=== PATIENT | male | born 1990 | race Caucasian/White ===

== ENCOUNTER 2021-03-24 08:03 | Outpatient (CLI) | payer OTHER ==
[~2021-03-24] VITALS: Ht 177.8 cm; Wt 72.7 kg
[2021-03-24] MEDS ORDERED: OMEPRAZOLE20 M1 (09:03)
[2021-03-24] MEDS ORDERED: LEVSIN/ANASP0.125 MG (09:04)
[2021-03-24 09:10] VITALS: Ht 177.8 cm; Wt 72.7 kg
--- NOTE | 2021-03-24 16:05 | NUR ---
[address] 1500 IV REMOVED AND INSTRUCTIONS GIVEN TO PT 1545 D/C BACK TO [facility]
--- NOTE | 2021-03-25 13:22 | HP ---
PATIENT: RAMESH SCHULTZ MEDICAL RECORD: [id number] ACCOUNT: [id number] LOCATION:D.CT : 89 ADMISSION DATE: 03/24/21 PCP: No PCP HISTORY AND PHYSICAL EXAMINATION HISTORY OF PRESENT ILLNESS: The patient is here for EGD and colonoscopy. He underwent a CAT scan and this over a year old. It revealed minimal ascites in the pelvis as well as some thick walled small bowel. This is suspicious for ileitis and could represent inflammatory bowel disease or an infectious problem. He has noted no hematochezia. No melena. PAST MEDICAL AND SURGICAL HISTORY: Gastroesophageal reflux. MEDICATIONS: At the long-term; omeprazole, Levsin. ALLERGIES: No known drug allergies. SOCIAL HISTORY: Nonsmoker. PHYSICAL EXAMINATION: GENERAL: The patient does not appear acutely ill. He does not appear chronically ill. VITAL SIGNS: Reviewed. EARS: External ears appear normal. EYES: Extraocular movements are intact. NECK: Trachea is midline. CHEST: No intercostal retractions. PULMONARY: Nonlabored. No stridor. IMPRESSION: 1. Abdominal pain, left lower quadrant as well as right side of the abdomen. 2. Abnormal appearing CT scan with thickened small bowel. PLAN: EGD and colonoscopy. TRANSINT:[id number] Voice Confirmation ID: [id number] DOCUMENT ID: [id number] 03/24/2021 Edited for cc. cc: Jud Shrestha APN, [facility] JYOTSNA RODRÍGUEZ MD at 1322 CC: [id number] DICTATION DATE: 03/24/21 1209 SC[employer]HOUSE ATTENDANT: 03/24/21 1225 DEP CLI 03/24/21 [place] [id number]
--- NOTE | 2021-03-25 13:22 | OP ---
PATIENT NAME: RAMESH SCHULTZ MEDICAL RECORD: [id number] :89 LOCATION:D.CT ADMISSION DATE: SURGEON: JYOTSNA RODRÍGUEZ MD DATE OF OPERATION: 03/24/2021 PREOPERATIVE DIAGNOSES: 1. Left lower quadrant abdominal pain. 2. Right-sided abdominal pain. 3. History of ascites on CT scan. 4. History of thickened bowel on CT scan somewhat worrisome for inflammatory bowel disease. POSTOPERATIVE DIAGNOSES: 1. Left lower quadrant abdominal pain. 2. Right-sided abdominal pain. 3. History of ascites on CT scan. 4. History of thickened bowel on CT scan somewhat worrisome for inflammatory bowel disease. 5. Normal upper endoscopy. 6. Normal colonoscopy without a colitis or proctitis. 7. Normal appearing ileum. 8. One colonic polyp, 7 mm, sessile. PROCEDURES: 1. Esophagogastroduodenoscopy with duodenal biopsies as well as antral biopsies to rule out H. pylori. 2. Total colonoscopy to cecum. 3. Hot biopsy forceps polypectomy x1. 4. Cold endoscopic ileal biopsies to rule out Crohn's disease. SURGEON: Jyotsna Rodríguez MD PAYMENT ANALYST: None. BLOOD LOSS: Minimal. ANESTHESIA: IV sedation. COMPLICATIONS: None. The risks, possible complications, and alternatives of the procedure were explained to the patient. He elects to proceed. ENDOSCOPIC COURSE: The patient was conveyed to endoscopy suite electively on 03/24/2021. IV sedation was induced by the anesthesia staff. A bite block was inserted. A gastroscope was inserted into the mouth. It was advanced easily into the hypopharynx. The esophagus was easily intubated as were the stomach and duodenum. Upon withdrawal, retroflexed and angulus views were obtained. I then readvanced into the duodenum. Biopsies of the third portion of the duodenum were performed. These were cold biopsies. I then withdrew into the antrum. Antral biopsies were obtained to rule out H. pylori. I then withdrew the scope under direct vision. The patient was turned 180 degrees and placed in the Gamino position. A digital rectal examination was performed. The prostate was small, symmetric, and OPERATIVE REPORT [id number] RAMESH SCHULTZ without nodules. A colonoscope was inserted through the anus. It was easily advanced to the cecum. I intubated the ileum easily. I traveled about a foot up to the ileum. I saw no ulceration and there was no exudate. No inflammation. I took some cold endoscopic biopsies of the ileum. I then slowly withdrew the endoscope. I irrigated and aspirated extensively. The pullback was greater than a 16-minute pullback. I dragged the folds. A combination of normal imaging and narrow band imaging were utilized. One polyp was noted in the rectum and this was removed in its entirety utilizing the hot biopsy forceps polypectomy technique. Retroflex view was obtained in the rectum. I then unretroflexed the scope and removed it under direct vision. I do not anticipate that the patient will need to be placed on a surveillance colonoscopy regimen. I found no reason for his abdominal pain. We are going to obtain a CT scan of the abdomen and pelvis today. TRANSINT:[id number] Voice Confirmation ID: [id number] DOCUMENT ID: [id number] cc: Jud Shrestha APN, [facility] JYOTSNA RODRÍGUEZ MD at 1322 CC: [id number] DICTATION DATE: 03/24/21 1303 EVENT SPECIALIST: 03/24/21 1349 DEP CLI 03/24/21 [facility] [address] [place] [address]
== END 2021-03-24 15:45 ==
LOC: D.CT 08:03
PROVIDERS: ATTEND Surgery
DX: R10.32 Left lower quadrant pain (principal); R18.8 Other ascites; Z87.19 Personal history of other diseases of the digestive system; K63.5 Polyp of colon; K21.9 Gastro-esophageal reflux disease without esophagitis; K50.90 Crohn's disease, unspecified, without complications; R11.0 Nausea; R10.84 Generalized abdominal pain